=== PATIENT | male | born 1960 | race African-American/Black ===

== ENCOUNTER 2022-01-16 12:37 | Outpatient (REF) | payer OTHER, SELFPAY ==
[2022-01-16 13:44] LABS: Anion Gap 15 (12-20); Blood Urea Nitrogen 13 mg/dL (9-16); Calcium 9.6 mg/dL (8.4-10.2); Carbon Dioxide 30 mmol/L (22-29); Chloride 101 mmol/L (96-108); Estimated Glomerular Filt Rate > 60; Glucose Fasting 86 mg/dL (60-99); Potassium 4.7 mmol/L (3.3-5.1); Sodium 141 mmol/L (135-145)
[2022-01-16 14:17] LABS: Folate 12.9 ng/mL (> or = 4.0); Vitamin B12 978 pg/mL (200-900)
== END 2022-01-16 12:38 | disposition home or self-care (01) ==
LOC: HO.LAB 12:37
PROVIDERS: PCP Internal Medicine; Visit Provider Psychiatry & Neurology Neurology
DX: G31.84 Mild cognitive impairment of uncertain or unknown etiology (principal); G62.9 Polyneuropathy, unspecified
CPT/HCPCS: 36415; 80048; 82607; 82746